=== PATIENT | female | born 1950 | race Two or more races ===

== ENCOUNTER 2017-09-11 12:18 | Emergency (ER) | payer OTHER ==
[~2017-09-11] VITALS: Ht 157.5 cm; Wt 77.1 kg
[2017-09-11] MEDS ORDERED: SYNTHROID50 MCG (12:41)
[2017-09-11] MEDS ORDERED: ASA81 MG (12:41)
== END 2017-09-12 22:01 | disposition home or self-care (01) ==
LOC: ER 12:18 → CPU-OBS 12:50
DX: I20.8 Other forms of angina pectoris (principal); E03.8 Other specified hypothyroidism; R07.89 Other chest pain; I11.9 Hypertensive heart disease without heart failure